=== PATIENT | male | born 1930 | race Hispanic/Latino ===

== ENCOUNTER 2016-06-09 12:40 | Emergency (ER) | payer MEDICARE, MEDICAID ==
[2016-06-09 12:40] VITALS: BMI 33.4
--- NOTE | 2016-06-09 13:19 | C.PDOC ---
History Of Present Illness 86-year-old male, PMHx includes Anxiety, Arthritis, Asthma, COPD, Emphysema, Gastrointestinal Ulcer, Hypertension, Hypercholesterolemia, Peripheral Edema, and Pneumonia, presents to the emergency department with complaints of productive cough for the past several days with worsening shortness of breath x1 week, that is worse when laying flat and with exertion. Patient states that he had a chest x-ray one month ago, and he was told he had Pneumonia but "nothing was done." Patient denies abdominal pain, nausea/vomiting/diarrhea, chest pain or any other associated symptoms. No other complaints at this time. Time Seen by Provider: 06/09/16 13:06 Chief Complaint (Nursing): Flu-like Symptoms Past Medical History Vital Signs: Last Vital Signs Temp 97.9 F 06/09/16 16:25 Pulse 87 06/09/16 16:25 Resp 18 06/09/16 16:25 BP 144/87 06/09/16 16:25 Pulse Ox 95 06/09/16 16:25 - Medical History PMH: Anxiety, Arthritis, Asthma, COPD, Emphysema, Gastrointestinal Ulcer, HTN, Hypercholesterolemia, Kidney Stones, Peripheral Edema, Pneumonia, Chronic Kidney Disease - [facility] Procedures CLOSED ENDOSCOPIC BIOPSY OF LARGE INTESTINE (10/25/12) ESOPHAGOGASTRODUODENOSCOPY [EGD] W/CLOSED BIOPSY (06/21/14) EXERCISE TREATMENT OF RESP BODY USING ASSIST EQUIPMENT (10/22/15) GAIT TRAINING/AMBULAT TREATMENT USING ASSIST EQUIPMENT (10/22/15) INTRODUCE OF OTH THERAP SUBST INTO RESP TRACT, VIA OPENING (04/29/15) NEBULIZER THERAPY (02/02/14) THERAPEUTIC EXERCISE TREATMENT OF MUSCULOSK WHOLE (04/29/15) Family History: States: Unknown Family Hx - Social History Hx Tobacco Use: Yes Hx Alcohol Use: No Hx Substance Use: No - Immunization History Hx Tetanus Toxoid Vaccination: No Hx Influenza Vaccination: Yes Hx Pneumococcal Vaccination: Yes Review Of Systems Except As Marked, All Systems Reviewed And Found Negative. Constitutional: Negative for: Fever, Chills Cardiovascular: Positive for: Orthopnea, Edema. Negative for: Chest Pain, Palpitations Respiratory: Positive for: Cough, Shortness of Breath, SOB with Excertion Gastrointestinal: Negative for: Nausea, Vomiting, Abdominal Pain Musculoskeletal: Negative for: Back Pain Skin: Negative for: Rash Neurological: Negative for: Weakness, Numbness, Headache, Dizziness Physical Exam - Physical Exam Appears: Non-toxic, No Acute Distress, Other (SPEAKING IN FULL SENTENCES) Skin: Warm, Dry, No Rash Eye(s): bilateral: Normal Inspection, PERRL Nose: Normal Oral Mucosa: Moist Lips: Normal Appearing Neck: Normal ROM Cardiovascular: Rhythm Regular Respiratory: No Accessory Muscle Use, Rales, Wheezing (MILD EXPIRATORY) Gastrointestinal/Abdominal: Soft, No Tenderness Extremity: Pedal Edema (PITTING +1) Neurological/Psych: Oriented x3, Normal Speech ED Course And Treatment - Laboratory Results Result Diagrams: 06/09/16 13:50 06/09/16 13:50 O2 Sat by Pulse Oximetry: 96 Progress Note: EKG, Bloodwork, Chest X-Ray, Peak Flow and Duoneb ordered and reviewed. Patient given Duoneb and IV Lasix. Disposition Counseled Patient/Family Regarding: Studies Performed, Diagnosis, Need For Followup, Rx Given - Disposition Referrals: Christian Hopper MD [Staff Provider] - Disposition: HOME/ ROUTINE Disposition Time: 15:50 Additional Instructions: SEGUIMIENTO CON EL DR HOPPER EN 1-2 MARTÍNEZ USE [facility] SEGN LO DIRIGIDO DEVUELVA A LA CARLOS DE EMERGENCIA SI LOS [facility] Prescriptions: Doxycycline Monohydrate [Mondoxyne Nl] 100 mg PO BID #14 capsule Benzonatate [Tessalon Perles] 100 mg PO BID PRN #15 sgl PRN Reason: Cough Albuterol HFA [Ventolin HFA 90 mcg/actuation (8 g)] 0.09 mg IH Q4 PRN #1 puff PRN Reason: Wheezing Instructions: Pneumonia (ED) Print Language: ICELANDIC - POA Present On Arrival: None - Clinical Impression Clinical Impression: Pneumonia - Scribe Statement The provider has reviewed the documentation as recorded by the Scribjj Chan All medical record entries made by the Scribe were at my direction and personally dictated by me. I have reviewed the chart and agree that the record accurately reflects my personal performance of the history, physical exam, medical decision making, and the department course for this patient. I have also personally directed, reviewed, and agree with the discharge instructions and disposition.
[2016-06-09] MEDS ORDERED: Albuterol-Ipratrop 3 mg / 0.5 (3 ml) UD INH STA (13:30)
[2016-06-09] MEDS ORDERED: Albuterol-Ipratrop 3 mg / 0.5 (3 ml) UD ONE (13:54)
[2016-06-09 13:55] LABS: BASO % 0.2 % (0.0-2.0); EOS # 0.5 K/uL (0.0-0.7); EOS % 8.7 % (0.0-4.0); HEMATOCRIT 38.7 % (35.0-51.0); LYMPH # 1.3 K/uL (1.0-4.3); LYMPH % 24.9 % (20.0-40.0); MEAN CORPUSCULAR HEMOGLOBIN 30.5 pg (27.0-31.0); MEAN CORPUSCULAR HGB CONC 32.8 g/dL (33.0-37.0); MEAN PLATELET VOLUME 7.7 fL (7.2-11.7); MONO # 0.4 K/uL (0.0-0.8); MONO % 8.5 % (0.0-10.0); NRBC % 0.1 % (0.0-2.0); RED CELL DISTRIBUTION WIDTH 14.3 % (11.5-14.5); WHITE BLOOD COUNT 5.3 K/uL (4.8-10.8)
[2016-06-09 14:02] LABS: VENOUS BLOOD GAS BASE EXCESS -0.5 mmol/L (0.0-2.0); VENOUS BLOOD GAS PCO2 51 mmHg (40-60); VENOUS BLOOD PH 7.32 (7.32-7.43)
[2016-06-09 14:02] LABS: CHLORIDE 103 mmol/L (98-107); POTASSIUM 4.2 mmol/L (3.6-5.2); SODIUM 143 mmol/L (132-148)
[2016-06-09 14:04] LABS: AST/SGOT 20 U/L (17-59); BILIRUBIN,TOTAL 0.5 mg/dL (0.2-1.3); CARBON DIOXIDE 26 mmol/L (22-30); GFR AFRICAN-AMERICAN 58
[2016-06-09 14:05] LABS: ALKALINE PHOSPHATASE 52 U/L (38-126); ALT/SGPT 28 U/L (21-72); BLOOD UREA NITROGEN 28 mg/dL (9-20); CALCIUM 8.7 mg/dl (8.6-10.4); GLUCOSE,RANDOM 90 mg/dL (75-110)
--- NOTE | 2016-06-09 14:55 | RAD ---
HISTORY: SOB COMPARISON: Chest x-ray performed 03/11/16 TECHNIQUE: Chest, one view. FINDINGS: Examination limited by habitus. LUNGS: Bibasilar atelectasis. Please note that chest x-ray has limited sensitivity for the detection of pulmonary masses. PLEURA: Small left pleural effusion. No definite pneumothorax . CARDIOVASCULAR: Cardiomegaly. OSSEOUS STRUCTURES: Osseous demineralization. Degenerative changes of the spine and shoulders. VISUALIZED UPPER ABDOMEN: Unremarkable. OTHER FINDINGS: None. IMPRESSION: Bibasilar atelectasis. Small left pleural effusion. Cardiomegaly.
[2016-06-09 16:35] VITALS: BP 144/87; PULSE 87; RESP 18; TEMP 97.9
--- NOTE | 2016-06-09 16:43 | RAD ---
PROCEDURE: Bilateral Ankle Radiographs. HISTORY: B/K ANKLE PAIN COMPARISON: None FINDINGS: BONES: Right Ankle: Normal. No fracture. Left Ankle: Normal. No fracture. JOINTS: Right Ankle: Normal. No osteoarthritis. Ankle mortise maintained. Talar dome intact. Left Ankle: Normal. No osteoarthritis. Ankle mortise maintained. Talar dome intact. SOFT TISSUES: Right Ankle: Normal. Left Ankle: Normal. OTHER FINDINGS: None. IMPRESSION: Normal bilateral ankle radiographs.
[2016-06-09 17:13] VITALS: O2SAT 96
--- NOTE | 2016-06-12 09:19 | CARD ---
APPROVED REPORT EKG Measurement Heart [id number] <Conclusion> Normal sinus rhythm Right bundle branch block Left anterior fascicular block Bifascicular block Abnormal ECG
== END 2016-06-09 16:57 | disposition home or self-care (01) ==
LOC: C.ER 12:40
DX: J18.9 Pneumonia, unspecified organism (principal)
CPT/HCPCS: 71010; 73610; 80053; 82550; 82553; 82803; 83880; 84484; 85025; 85610; 85730; 87040; 93005; 94640; 96374; 99285; J1940